=== PATIENT | male | born 2000 | race Caucasian/White ===

== ENCOUNTER 2020-12-03 16:49 | Emergency (ER) | payer OTHER ==
[2020-12-03 17:41] LABS: BASOPHIL % 0.1 % (0.0-0.4); Basophil (Absolute #) 0.01 (0-0.4); Eosinophil % 0.3 % (0.00-5.0); Eosinophil (Absolute #) 0.04 (0-0.5); Hematocrit 49.7 % (42-50); Hemoglobin 16.2 gm/dl (12.5-18.0); Lymphocyte (Absolute #) 4.15 (1.0-4.6); Lymphocytes % 29.1 % (24.0-44.0); Mean Cell Volume 95.4 fl (78-100); Mean Corpuscular Hemoglobin 31.1 pg (26-32); Mean Corpuscular Hgb Concent. 32.6 g/dl (32-36); Mean Platelet Volume 9.4 fl (7.5-11.0); Monocyte (Absolute #) 1.48 (0.0-1.3); Monocytes % 10.4 % (0.0-12.0); Neutrophil % 60.1 % (36.0-66.0); Platelet Count 265 K/mm3 (150-450); Red Blood Count 5.21 M/mm3 (4.1-5.6); Red Cell Distribution Width 13.2 % (11.5-14.0); White Blood Count 14.3 K/mm3 (4.0-10.5)
[2020-12-03 17:50] LABS: INR 1.15 (0.8-3.0)
--- NOTE | 2020-12-03 17:51 | ERPHSYRPT ---
- History of Present Illness Historian: patient Exam Limitations: no limitations Patient Subjective Stated Complaint: Abdominal pain/rectal bleeding Triage Nursing Assessment: Patient ambulated back to ED and transferred self to bed. Patietn A+O X3. Patient's skin pink, warm and dry. Patient complains of lower abdominal pain intermittent sharp pain /10. Patient reports rectal bleeding as well that started yesterday evning. Abdomen soft and round with BS X 4. Physician History: 20 yo wm w generalized abdominal pain and hematochezia x1 day. Pain 2/ but has been up to 04/27. He has had nausea wo vomiting/fever/melena/dysuria/hematuria. Timing/Duration: day(s) (1day) Activities at Onset: rest Quality: dullness Abdominal Pain Onset Location: generalized abdomen Pain Radiation: no radiation Severity of Pain-Max: moderate Severity of Pain-Current: mild Modifying Factors: Worsens With: analgesics, antacids, breathing, coughing, defecating, eating, exercise, lying down, movement, palpation, rest, urinating, vomiting, position, walking Associated Symptoms: No back, No chest pain, No diaphoresis, No fever/chills, No fatigue, No headache, No heartburn, No loss of appetite, No nausea, No neck pain, No rash, No shortness of breath, No syncope, No vomiting, No weakness Previous symptoms: no prior history Allergies/Adverse Reactions: No Known Drug Allergies Allergy (Unverified 12/03/20 16:57) Hx Influenza Vaccination/Date Given: No Hx Pneumococcal Vaccination/Date Given: No Immunizations Up to Date: Yes Travel Risk - International Travel Have you traveled outside of the country in past 3 weeks: No - Coronavirus Screening Are you exhibiting any of the following symptoms?: No Close contact with a COVID-19 positive Pt in past 14-21 Days: No - Review of Systems Constitutional: No Symptoms Eyes: No Symptoms Ears, Nose, & Throat: No Symptoms Respiratory: No Symptoms Cardiac: No Symptoms Abdominal/Gastrointestinal: Abdominal Pain, Hematochezia, No Nausea, No Vomiting, No Diarrhea, No Constipation, No Hematemesis, No Melena, No Dysphagia, No Appetite Changes Genitourinary Symptoms: No Symptoms Musculoskeletal: No Symptoms Skin: No Symptoms Neurological: No Symptoms Psychological: No Symptoms Endocrine: No Symptoms Hematologic/Lymphatic: No Symptoms Immunological/Allergic: No Symptoms - Past Medical History Pertinent Past Medical History: Yes Neurological History: No Pertinent History ENT History: No Pertinent History Cardiac History: No Pertinent History Respiratory History: No Pertinent History Endocrine Medical History: No Pertinent History Musculoskeletal History: No Pertinent History GI Medical History: No Pertinent History History: No Pertinent History Psycho-Social History: No Pertinent History Male Reproductive Disorders: No Pertinent History - Past Surgical History Past Surgical History: No Neuro Surgical History: No Pertinent History Cardiac: No Pertinent History Respiratory: No Pertinent History Gastrointestinal: No Pertinent History Genitourinary: No Pertinent History Musculoskeletal: No Pertinent History Male Surgical History: No Pertinent History - Social History Smoking Status: Never smoker Exposure to second hand smoke: Yes Drug Use: marijuana Patient Lives Alone: No Significant Family History: no pertinent family hx - Nursing Vital Signs Nursing Vital Signs: Initial Vital Signs Temperature 98.7 F 12/03/20 16:59 Pulse Rate 104 H 12/03/20 16:59 Respiratory Rate 18 12/03/20 16:59 Blood Pressure 168/105 12/03/20 16:59 O2 Sat by Pulse Oximetry 99 12/03/20 16:59 Pain Scale Pain Intensity 0 - Physical Exam General Appearance: no apparent distress Eye Exam: PERRL/EOMI, eyes nml inspection Ears, Nose, Throat Exam: normal ENT inspection, TMs normal, pharynx normal, moist mucous membranes Neck Exam: normal inspection, non-tender, supple, full range of motion, No meningismus, No mass, No Brudzinski, No Kernig's Respiratory Exam: normal breath sounds, lungs clear, airway intact, No respiratory distress Cardiovascular Exam: tachycardia (Mild) Gastrointestinal/Abdomen Exam: soft, normal bowel sounds, tenderness (Diffuse), No distention, No mass, No guarding, No ecchymosis, No pulsatile mass, No rebound Extremity Exam: normal inspection, normal range of motion Neurologic Exam: alert, oriented x 3, cooperative, field engineer II-XII nml as tested, normal mood/affect, nml cerebellar function, nml station & gait, sensation nml Skin Exam: normal color, warm, dry, No rash Lymphatic Exam: No adenopathy SpO2 Interpretation: normal SpO2: 99 O2 Delivery: Room Air - Course Nursing assessment & vital signs reviewed: Yes - CT Exams Abdomen/Pelvis CT Interpretation: Discussed w/radiologist (Mild descending colon colitis) Ordered Tests: Active Orders 24 hr Category Date Time Status IV Insertion STAT Care 12/03/20 17:07 Completed ABDOMEN AND PELVIS W CONTRAST [CT] Stat Exams 12/03/20 18:06 Taken AMYLASE Stat Lab 12/03/20 17:00 Completed CBC W DIFF Stat Lab 12/03/20 17:00 Completed CMP Stat Lab 12/03/20 17:00 Completed LIPASE Stat Lab 12/03/20 17:00 Completed Occult Blood Stool [FECAL OCCULT BLOOD - SCREENING] Lab 12/03/20 17:53 Completed Stat PROTIME WITH INR Stat Lab 12/03/20 17:00 Completed Medication Summary Discontinued Medications Generic Name Dose Route Start Last Admin Trade Name Freq PRN Reason Stop Dose Admin Ciprofloxacin 500 mg 12/03/20 22:00 12/03/20 19:26 Cipro 500 Mg PO 01/02/21 21:59 500 mg BID AINSLEY Administration Ciprofloxacin Confirm 12/03/20 19:25 Cipro 500 Mg Administered 12/03/20 19:26 Dose 500 mg .ROUTE .STK-MED ONE Sodium Chloride 1,000 mls @ 999 mls/hr 12/03/20 18:06 12/03/20 19:12 Sodium Chloride 0.9% 1000 Ml IV 12/03/20 19:06 Infused .Q1H1M STA Infusion Sodium Chloride Confirm 12/03/20 18:07 Sodium Chloride 0.9% 1000 Ml Administered 12/03/20 18:08 Dose 1,000 mls @ ud .ROUTE .STK-MED ONE Metronidazole 500 mg 12/03/20 19:24 12/03/20 19:26 Flagyl 500 Mg PO 12/03/20 19:25 500 mg STAT ONE Administration Metronidazole Confirm 12/03/20 19:25 Flagyl 500 Mg Administered 12/03/20 19:26 Dose 500 mg .ROUTE .STK-MED ONE Lab/Rad Data: Laboratory Result Diagrams 12/03/20 17:00 12/03/20 17:00 Laboratory Results 12/03/20 12/03/20 12/03/20 Range/Units 17:53 17:00 17:00 WBC (4.0-10.5) K/mm3 RBC (4.1-5.6) M/mm3 Hgb (12.5-18.0) gm/dl Hct (42-50) % MCV (78-100) fl MCH (26-32) pg MCHC (32-36) g/dl RDW (11.5-14.0) % Plt Count (150-450) K/mm3 MPV (7.5-11.0) fl Gran % (36.0-66.0) % Eos # (Auto) (0-0.5) Absolute Lymphs (auto) (1.0-4.6) Absolute Monos (auto) (0.0-1.3) Lymphocytes % (24.0-44.0) % Monocytes % (0.0-12.0) % Eosinophils % (0.00-5.0) % Basophils % (0.0-0.4) % Absolute Granulocytes (1.4-6.9) Basophils # (0-0.4) PT 13.0 H (8.83-12.87) SECONDS INR 1.15 (0.8-3.0) Sodium 139 (137-145) mmol/L Potassium 3.4 L (3.5-5.1) mmol/L Chloride 101 (98-107) mmol/L Carbon Dioxide 30 (22-30) mmol/L Anion Gap 12.1 (5-15) MEQ/L BUN 12 (9-20) mg/dL Creatinine 0.91 (0.66-1.25) mg/dL Estimated GFR > 60.0 ML/MIN Glucose 94 (74-106) mg/dL Calcium 9.7 (8.4-10.2) mg/dL Total Bilirubin 1.20 (0.2-1.3) mg/dL AST 23 (17-59) U/L ALT 15 (0-50) U/L Alkaline Phosphatase 83 (38-126) U/L Serum Total Protein 8.2 (6.3-8.2) g/dL Albumin 4.6 (3.5-5.0) g/dL Amylase 99 (30-110) U/L Lipase 73 (23-300) U/L Stool Occult Blood POSITIVE A (NEGATIVE) 12/03/20 Range/Units 17:00 WBC 14.3 H (4.0-10.5) K/mm3 RBC 5.21 (4.1-5.6) M/mm3 Hgb 16.2 (12.5-18.0) gm/dl Hct 49.7 (42-50) % MCV 95.4 (78-100) fl MCH 31.1 (26-32) pg MCHC 32.6 (32-36) g/dl RDW 13.2 (11.5-14.0) % Plt Count 265 (150-450) K/mm3 MPV 9.4 (7.5-11.0) fl Gran % 60.1 (36.0-66.0) % Eos # (Auto) 0.04 (0-0.5) Absolute Lymphs (auto) 4.15 (1.0-4.6) Absolute Monos (auto) 1.48 H (0.0-1.3) Lymphocytes % 29.1 (24.0-44.0) % Monocytes % 10.4 (0.0-12.0) % Eosinophils % 0.3 (0.00-5.0) % Basophils % 0.1 (0.0-0.4) % Absolute Granulocytes 8.60 H (1.4-6.9) Basophils # 0.01 (0-0.4) PT (8.83-12.87) SECONDS INR (0.8-3.0) Sodium (137-145) mmol/L Potassium (3.5-5.1) mmol/L Chloride (98-107) mmol/L Carbon Dioxide (22-30) mmol/L Anion Gap (5-15) MEQ/L BUN (9-20) mg/dL Creatinine (0.66-1.25) mg/dL Estimated GFR ML/MIN Glucose (74-106) mg/dL Calcium (8.4-10.2) mg/dL Total Bilirubin (0.2-1.3) mg/dL AST (17-59) U/L ALT (0-50) U/L Alkaline Phosphatase (38-126) U/L Serum Total Protein (6.3-8.2) g/dL Albumin (3.5-5.0) g/dL Amylase (30-110) U/L Lipase (23-300) U/L Stool Occult Blood (NEGATIVE) - Progress Progress: improved Progress Note: 12/03/20 19:28 Pt refuses all pain meds 1L NS bolus Flagyl 500mg po/Cipro 500mg po Counseled pt/family regarding: lab results, diagnosis, need for follow-up, rad results - Departure Departure Disposition: Home Clinical Impression: Colitis Condition: Stable Critical Care Time: No Referrals: Provider,Unknown [Primary Care Provider] - Instructions: Colitis Additional Instructions: Continue with Cipro/Flagyl in AM Fluids Advance diet slowly Follow up with family MD in 2-3 days Return to ER for increasing pain or temperature greater than 100.5 Prescriptions: Ciprofloxacin [Cipro 500 MG] 500 mg PO BID #20 tablet Metronidazole 500 mg [Flagyl 500 MG] 500 mg PO TID #30 tablet
[2020-12-03 17:55] LABS: ALBUMIN 4.6 g/dL (3.5-5.0); ALKALINE PHOSPHATASE 83 U/L (38-126); AMYLASE 99 U/L (30-110); ANION GAP 12.1 MEQ/L (5-15); BLOOD UREA NITROGEN 12 mg/dL (9-20); CHLORIDE 101 mmol/L (98-107); Calcium 9.7 mg/dL (8.4-10.2); Carbon Dioxide 30 mmol/L (22-30); Creatinine 1 0.91 mg/dL (0.66-1.25); EST GLOMERULAR FILTRATION RATE > 60.0 ML/MIN; Glucose 94 mg/dL (74-106); LIPASE 73 U/L (23-300); Potassium 3.4 mmol/L (3.5-5.1); SGOT/AST 23 U/L (17-59); SGPT/ALT 15 U/L (0-50); SODIUM 139 mmol/L (137-145); Total Protein 8.2 g/dL (6.3-8.2)
[2020-12-03] MEDS ORDERED: Sodium Chloride 0.9% 1000 ML 1,000 ML IV STA (18:06)
[2020-12-03] MEDS ORDERED: Sodium Chloride 0.9% 1000 ML 1,000 ML ONE (18:07)
[2020-12-03 19:20] VITALS: BP 146/96
[2020-12-03] MEDS ORDERED: Flagyl 500 MG PO ONE (19:24)
[2020-12-03] MEDS ORDERED: Flagyl 500 MG ONE (19:25)
[2020-12-03] MEDS ORDERED: Cipro 500 MG ONE (19:25)
[2020-12-03 19:32] VITALS: PULSE 72; O2SAT 99
[2020-12-03] MEDS ORDERED: Cipro 500 MG PO SCH (22:00)
--- NOTE | 2020-12-04 08:09 | XRAY ---
Indication: Abdomen pain. Blood in stool. Multiple contiguous axial images obtained through the abdomen and pelvis using 80 cc Isovue 370 contrast. Comparison: None Lung bases are clear. Heart is not enlarged. Noncontrasted stomach and bowel loops appear nonobstructed. Normal appendix. Descending colon diameter is mild circumferential wall thickening with minimal distal pericolonic stranding favoring colitis. No free fluid/air. Remaining liver, gallbladder, pancreas, spleen, adrenal glands, kidneys, ureters, bladder, and aorta appear normal in CT appearance and attenuation. No pathologic retroperitoneal lymphadenopathy. Osseous structures intact. No ventral or inguinal hernias. Impression: 1. Mild descending colitis. No complications. 2. Remaining CT abdomen/pelvis with contrast exam is negative.
== END 2020-12-03 19:39 | disposition home or self-care (01) ==
LOC: ED 16:49
DX: K52.9 Noninfective gastroenteritis and colitis, unspecified (principal); R10.9 Unspecified abdominal pain; K92.1 Melena; R00.0 Tachycardia, unspecified
CPT/HCPCS: 36000; 36415; 74177; 80053; 82150; 82274; 83690; 85025; 85610; 96360; 99284; A9270-GY; G0328